=== PATIENT | male | born 1990 | race Caucasian/White ===

== ENCOUNTER 2018-11-01 12:55 | Emergency (ER) | payer MEDICAID ==
[~2018-11-01] VITALS: Ht 170.2 cm; Wt 59.0 kg
[2018-11-01] MEDS ORDERED: ondansetron/PF 4mg/2ml inj IV ONE (15:05)
[2018-11-01] MEDS ORDERED: normal saline 1000ML IV soln IVB ONE ×3 (15:05→16:10)
[2018-11-01] MEDS ORDERED: LORazepam 2 mg/ml vial IV ONE (15:05)
[2018-11-01] MEDS ORDERED: haloperidol lactate 5mg/ml inj IM ONE (15:10)
[2018-11-01] MEDS ORDERED: diphenhydrAMINE 50 mg/ml inj IV ONE (15:10)
[2018-11-01] MEDS ORDERED: cloNIDine 0.1 mg tablet PO ONE (15:10)
[2018-11-01] MEDS ORDERED: cloNIDine 0.1 MG/24 HOUR patch (7 day patch) TD ONE (15:10)
[2018-11-01] MEDS ORDERED: CLON-529 PO (15:27)
[2018-11-01] MEDS ORDERED: PHE12.5T PO (15:27)
[2018-11-01 15:34] LABS: ALANINE AMINOTRANSFERASE 116 U/L (12-78); ALBUMIN 3.8 G/DL (3.4-5.0); ALBUMIN/GLOBULIN RATIO 1.2 (1.1-1.5); ALKALINE PHOSPHATASE 81 IU/L (46-116); ANION GAP 16 (8-16); ASPARTATE AMINO TRANSFERASE 47 U/L (10-37); BILIRUBIN,TOTAL 0.7 MG/DL (0.1-1.0); BLOOD UREA NITROGEN 15 MG/DL (7-18); BUN/CREATININE RATIO 18.3 (5.4-32.0); CALCIUM 9.6 MG/DL (8.5-10.1); CHLORIDE 100 MMOL/L (99-107); CREATININE 0.82 MG/DL (0.60-1.10); GLUCOSE 124 MG/DL (70-104); MAGNESIUM 1.7 MG/DL (1.5-2.4); POTASSIUM 3.3 MMOL/L (3.5-5.1); SODIUM 137 MMOL/L (135-145); TOTAL CARBON DIOXIDE 21.3 MMOL/L (24-32); eGFR > 90 ML/MIN
[2018-11-01] MEDS ORDERED: potassium Cl 20 mEq SR tablet PO ONE (15:55)
[2018-11-01] MEDS ORDERED: magnesium oxide 400mg tablet PO ONE (15:55)
--- NOTE | 2018-11-01 17:24 | NUR ---
Dr. Horner at bedside.
[2018-11-01 17:34] VITALS: BP 145/77
== END 2018-11-01 17:38 | disposition home or self-care (01) ==
LOC: ER 12:55
DX: F11.23 Opioid dependence with withdrawal (principal); R11.10 Vomiting, unspecified; R19.7 Diarrhea, unspecified; F17.200 Nicotine dependence, unspecified, uncomplicated; F12.90 Cannabis use, unspecified, uncomplicated; F15.90 Other stimulant use, unspecified, uncomplicated; Z79.899 Other long term (current) drug therapy
CPT/HCPCS: 36415; 80053; 83735; 93005; 96361; 96372; 96374; 96375; 99284; J1200; J1630; J2060; J2405; J7030

== ENCOUNTER 2019-02-09 14:21 | Emergency (ER) | payer MEDICAID ==
[~2019-02-09] VITALS: Ht 170.2 cm; Wt 50.0 kg
[~2019-02-09 14:21] MED LIST: CLON-529 PO; PROM12.512 PO
[2019-02-09] MEDS ORDERED: buprenorphine/naloxone 8mg/2mg SL tablet SL SCH (14:40)
[2019-02-09 14:51] LABS: BASOPHILS % (AUTO) 0.4 % (0-1); EOSINOPHILS % (AUTO) 0.4 % (0-6); HEMATOCRIT 42.8 % (42.0-52.0); HEMOGLOBIN 14.5 g/dl (14.0-17.9); LYMPHOCYTES # (AUTO) 2.6 X10'3 (1.1-4.8); LYMPHOCYTES % (AUTO) 25.1 % (21-51); MEAN CORPUSCULAR HEMOGLOBIN 28.9 PG (27.0-31.0); MEAN CORPUSCULAR HGB CONC 33.8 g/dL (33.0-36.5); MEAN CORPUSCULAR VOLUME 85.4 FL (78-98); MEAN PLATELET VOLUME 6.7 FL (7.4-10.4); MONOCYTES # (AUTO) 0.8 X10'3 (0-0.9); MONOCYTES % (AUTO) 7.5 % (2-12); NEUTROPHILS # (AUTO) 6.9 X10'3 (1.8-7.7); NEUTROPHILS % (AUTO) 66.6 % (42-75); PLATELET COUNT 350 X10'3 (140-440); RED BLOOD COUNT 5.01 X10'6 (4.70-6.10); RED CELL DISTRIBUTION WIDTH 13.7 % (11.5-14.5); WHITE BLOOD COUNT 10.4 X10'3 (4.5-11.0)
[2019-02-09 14:58] LABS: CLARITY,URINE CLOUDY (Clear); COLOR,URINE YELLOW (Yellow); GLUCOSE, URINE NEGATIVE (Neg); KETONES,URINE TRACE mg/dl (Neg); LEUKOCYTE ESTERASE ,URINE NEGATIVE (Neg); NITRITES, URINE NEGATIVE (Neg); OCCULT BLOOD,URINE NEGATIVE (Neg); PROTEIN,URINE 30 mg/dl (Neg)
[2019-02-09 15:03] LABS: ALANINE AMINOTRANSFERASE 58 U/L (12-78); ALBUMIN 3.4 G/DL (3.4-5.0); ALBUMIN/GLOBULIN RATIO 0.9 (1.1-1.5); ALKALINE PHOSPHATASE 66 IU/L (46-116); ANION GAP 7 (8-16); ASPARTATE AMINO TRANSFERASE 30 U/L (10-37); BILIRUBIN,TOTAL 0.4 MG/DL (0.1-1.0); BLOOD UREA NITROGEN 12 MG/DL (7-18); BUN/CREATININE RATIO 13.3 (5.4-32.0); CALCIUM 8.8 MG/DL (8.5-10.1); CHLORIDE 102 MMOL/L (99-107); GLUCOSE 134 MG/DL (70-104); POTASSIUM 4.8 MMOL/L (3.5-5.1); SODIUM 139 MMOL/L (135-145); TOTAL CARBON DIOXIDE 30.2 MMOL/L (24-32); TOTAL PROTEIN 7.1 G/DL (6.4-8.2); eGFR > 90 ML/MIN
[2019-02-09 15:03] LABS: UA COLLECTION TYPE CLN CATCH MIDSTREAM
[2019-02-09 15:05] LABS: BACTERIA,URINE NONE SEEN /HPF (Neg); MUCUS STRANDS NONE SEEN /LPF (Neg); RBC,URINE NONE SEEN /HPF (0-2); SQUAMOUS EPITHELIAL CELL,UR FEW /LPF (FEW); WBC,URINE 0-4 /HPF (0-4)
[2019-02-09 15:06] LABS: AMORPHOUS URATES 2+; SPERM FEW /HPF (NEGATIVE)
[2019-02-09 15:12] LABS: ETHANOL < 0.010 GM/DL (0.0-0.010)
[2019-02-09 15:17] LABS: URINE AMPHETAMINE SCREEN NEGATIVE (Neg); URINE BARBITUATE SCREEN NEGATIVE (Neg); URINE BENZODIAZEPINES SCREEN NEGATIVE (Neg); URINE CANNABINOID SCREEN POSITIVE (Neg); URINE COCAINE SCREEN NEGATIVE (Neg); URINE METHADONE SCREEN NEGATIVE (Neg); URINE OPIATE SCREEN POSITIVE (Neg); URINE PHENCYCLIDINE SCREEN NEGATIVE (Neg)
--- NOTE | 2019-02-09 15:30 | NUR ---
Patient transferred from Room 15 in the Main ER to Bed 23 in the Overflow area. Ambulatory accompanied by mother,daughter and staff Howard. Changed into green gowns. Urine obtained. Made comfortable in bed.
--- NOTE | 2019-02-09 16:08 | NUR ---
PHONE NUMBERS FOR GLADYS ANDRES (PT'S MOTHER): [phone] OR [phone]
--- NOTE | 2019-02-09 16:43 | NUR ---
Patient is here wanting to harm self. Over the past two months he was a witness to his best friend that overdosed twice. Patient administered narcan both times with the last time being a witness to his friend passing away. Patient is an heroin addict and due to the trauma of losing his best friend has been using more frequently to numb the pain of losing his friend. Patient has two daughters and wants to get help detoxing of heroin and getting his life back on track.
[2019-02-09] MEDS: buprenorphine/naloxone 2-0.5mg sublingual tablet SL SCH (16:57)
--- NOTE | 2019-02-09 17:00 | NUR ---
Patient crying in loud sobs after talking with staff and expressing his feelings of remorse over past life behaviors and choices. Wishes to get his life together and be involved in the care of his daughters. Presents as danger to self at this time.
--- NOTE | 2019-02-09 18:00 | NUR ---
Sleeping soundly at this time. Color and breathing WNL. In line of sight of staff at all times.
--- NOTE | 2019-02-09 20:39 | NUR ---
pt has no needs at this time. resting in bed. informed him of his suboxone being due at 0000.
--- NOTE | 2019-02-09 23:24 | NUR ---
pt sleeping on lt side. resp even/unlabored
[2019-02-10] MEDS: buprenorphine/naloxone 2-0.5mg sublingual tablet SL SCH ×2 (00:17→08:45)
--- NOTE | 2019-02-10 00:20 | NUR ---
pt up to restroom. administered 0000 med per order
--- NOTE | 2019-02-10 02:25 | NUR ---
pt sleeping on back. resp even/unlabored
--- NOTE | 2019-02-10 05:24 | NUR ---
pt continues sleeping
--- NOTE | 2019-02-10 06:00 | NUR ---
Pt is sleeping
[2019-02-10 06:07] VITALS: BP 121/69
--- NOTE | 2019-02-10 07:30 | NUR ---
Pt is sleeping.
--- NOTE | 2019-02-10 08:18 | NUR ---
Sister Anjum Harris [phone]
--- NOTE | 2019-02-10 09:03 | NUR ---
pt took medications.
--- NOTE | 2019-02-10 10:51 | NUR ---
pt is sleeping.
--- NOTE | 2019-02-10 12:51 | NUR ---
pt is continuing to sleep.
--- NOTE | 2019-02-10 13:50 | NUR ---
Pt resting in bed in no current distress.
[2019-02-10] MEDS ORDERED: BUPR1FIL3 SL (17:27)
== END 2019-02-10 14:52 ==
LOC: ER 14:21
DX: F32.9 Major depressive disorder, single episode, unspecified (principal); F11.23 Opioid dependence with withdrawal; F15.10 Other stimulant abuse, uncomplicated; F10.99 Alcohol use, unspecified with unspecified alcohol-induced disorder; F12.90 Cannabis use, unspecified, uncomplicated; Z79.899 Other long term (current) drug therapy; Y90.0 Blood alcohol level of less than 20 mg/100 ml
CPT/HCPCS: 36415; 80053; 80305; 80320; 81001; 84443; 85025; 99285

== ENCOUNTER 2019-02-10 13:21 | Inpatient (IN) | payer MEDICAID ==
[~2019-02-10] VITALS: Ht 170.2 cm; Wt 55.6 kg
[2019-02-10] MEDS ORDERED: hydrOXYzine 25 MG tablet PO PRN (15:40)
[2019-02-10] MEDS ORDERED: magnesium hydroxide 30ml (MOM) UD suspension PO PRN (15:40)
[2019-02-10] MEDS ORDERED: loperamide 2mg capsule PO PRN (15:40)
[2019-02-10] MEDS ORDERED: mag hydrox/Alum hydrox/simeth 30ml oral suspension PO PRN (15:40)
[2019-02-10] MEDS ORDERED: acetaminophen 325mg tablet PO PRN ×2 (15:40)
[2019-02-10] MEDS ORDERED: tuberculin, purif. prot. deriv. 5 units/0.1ml ID ONE (15:40)
[2019-02-10] MEDS ORDERED: BUPR1FIL3 SL (17:27)
[2019-02-10] MEDS ORDERED: NICOTINE POLACRILEX 2 MG LOZENGE MM PRN (17:30)
[2019-02-10 18:04] VITALS: BP 109/68
--- NOTE | 2019-02-10 18:09 | NUR ---
Nurse Admission Note: Pt is a 29 yo male brought to [facility] from [facility] ER after being put on a 5150 hold for danger to self. Pt SA was interrupted by his mother when he was on a bridge and thinking about jumping. Pt is feeling effects of heroine withdrawal, depressed, and dealing with the traumatic experience of having his friend in his arms due to an OD. Pt motivated to stop using heroine and open to taking an antidepressant. Pt showered, MRSA swab completed. Admission questions completed and oriented to unit and is now resting in bed. Consulted with Dr Diaz r/t meds. Addendum: 02/10/19 at 1819 by Sheldon Loco RN Vital Signs @1800: P - 78, T - 97.7, BP - 109/68, R - 16, O2 - 100%. Pain in stomach as he is nauseous r/t rodger CHAMPION.
[2019-02-10 20:00] VITALS: BP 110/54
[2019-02-10] MEDS: buprenorphine/naloxone 8MG-2MG SUBlingual film SL SCH (20:58)
--- NOTE | 2019-02-10 21:27 | NUR ---
Nursing Progress Note: Legal hold:5150 Client on voluntary/involuntary status for DTS Report received from nurse Kathy BAHENA with use of SBAR[]. Why are they here: Nurse Admission Note: Pt is a 29 yo male brought to [facility] from [facility] ER after being put on a 5150 hold for danger to self. Pt SA was interrupted by his mother when he was on a bridge and thinking about jumping. Pt is feeling effects of heroine withdrawal, depressed, and dealing with the traumatic experience of having his friend in his arms due to an OD. Pt motivated to stop using heroine and open to taking an antidepressant. Pt showered, MRSA swab completed. Admission questions completed and oriented to unit and is now resting in bed. Consulted with Dr Diaz r/t meds. Assessment What has happened this shift: Patient in bed at the start of shift. 1:1 at bed side Pt. states that he is depressed and has SI due to the stressors of losing a friend in his arm from an overdose. Pt states I'm here for help. I want to stop using. Pt was med compliant this shift. S/I, H/I: Y A/VH: []N Sleep:[]good ADL's:[]IND Group attendance:[] Were meds taken:[]Y Any med S/E[] Mental Status Exam Appearance:[] Depressed Eye contact:[] good Behavior:[] Speech:[]clear Mood:[]downcast Affect:[]Flat Thought process:[] Thought Content:[]blunted Cognition:[] Insight:[]poor Judgment:[] poor Interventions PRN's used:[] Therapeutic interventions:[] Restraints/seclusion/emergency medication:[] Justification of Continued Inpatient Treatment:[]
[2019-02-11] MEDS: buprenorphine/naloxone 8MG-2MG SUBlingual film SL SCH ×2 (07:15→20:38)
[2019-02-11 07:59] LABS: CHOL/HDL RATIO 3.3 (0.00-4.99); CHOLESTEROL 92 MG/DL (0-200); HDL CHOLESTEROL 28 MG/DL (35-60); LDL CHOLESTEROL 62 MG/DL (50-100); TRIGLYCERIDES 44 MG/DL (20-135)
[2019-02-11 08:00] VITALS: BP 106/68
[2019-02-11 08:58] LABS: HEMOGLOBIN A1C 5.7 % (4.5-6.2)
--- NOTE | 2019-02-11 15:09 | NUR ---
Malnutrition consult, patient presents with no edema, eating well with great appetite, 75-100% PO intake regular diet. There is a 2 lb difference in weight in the past four months, not significant for mild, moderate, or severe weight loss. BMI is appropriate, although 86% of IBW. Does not currently meet criteria for malnutrition. Will continue to follow per protocol. Addendum: 02/11/19 at [address] Amended: Links added.
--- NOTE | 2019-02-11 15:43 | NUR ---
Nursing Progress Note: Jaime Legal hold:5150 Client on voluntary/involuntary status for DTS Report received from slot shift supervisor RN Why are they here: Nurse Admission Note: Pt is a 29 yo male brought to [facility] from [facility] ER after being put on a 5150 hold for danger to self. Pt SA was interrupted by his mother when he was on a bridge and thinking about jumping. Pt is feeling effects of heroine withdrawal, depressed, and dealing with the traumatic experience of having his friend in his arms due to an OD. Pt motivated to stop using heroine and open to taking an antidepressant. Pt showered, MRSA swab completed. Admission questions completed and oriented to unit and is now resting in bed. Consulted with Dr Diaz r/t meds. Assessment What has happened this shift: Patient in bed at the start of shift. Compliant with assessment and medications. Client appears withdrawn and has been in his bed since the beginning of shift. Woke briefly to conduct am assessment and take medications. Patient did come to group room for lunch and has been more visible on the unit this pm. Had a phone visit this afternoon which seemed to brighten his affect. This investigative writer spoke to client regarding phone call today. He stated that he was talking to his Mother and was checking to see if he could discharge to her home when stable. He remains hopeful that she will accept him to her home. Client was previosly home;ess. S/I, H/I: Y A/VH: Denies Sleep: rested at times during shift ADL's: ind. Group attendance: no Were meds taken: Yes Any med S/E no Mental Status Exam Appearance: Depressed but brighter Eye contact: good Behavior: appropriate for unit. Speech:clear Mood:downcast Affect:Flat Thought process: Thought Content: blunted Cognition: Insight: improving Judgment: fair Interventions PRN's used: Therapeutic interventions: Restraints/seclusion/emergency medication: Justification of Continued Inpatient Treatment:
[2019-02-11 20:00] VITALS: BP 116/57
--- NOTE | 2019-02-11 22:41 | NUR ---
Nursing Progress Note: Jaime Legal hold:5150 Client on voluntary/involuntary status for DTS Report received from Joon BAHENA Why are they here: Nurse Admission Note: Pt is a 29 yo male brought to [facility] from [facility] ER after being put on a 5150 hold for danger to self. Pt SA was interrupted by his mother when he was on a bridge and thinking about jumping. Pt is feeling effects of heroine withdrawal, depressed, and dealing with the traumatic experience of having his friend in his arms due to an OD. Pt motivated to stop using heroine and open to taking an antidepressant. Pt showered, MRSA swab completed. Admission questions completed and oriented to unit and is now resting in bed. Consulted with Dr Diaz r/t meds. Assessment What has happened this shift: Patient in bed at the start of shift. Compliant with assessment and medications. Client appears withdrawn and has been in his bed since the beginning of shift. Woke briefly to conduct am assessment and take medications. Patient did go to group room for lunch and has been more visible on the unit this pm. Had a phone visit this afternoon which seemed to brighten his affect. This credit underwriter spoke to client regarding phone call today. He stated that he was talking to his Mother and was checking to see if he could discharge to her home when stable. He remains hopeful that she will accept him to her home. Client was previosly home;ess. S/I, H/I: Y A/VH: Denies Sleep: rested at times during shift ADL's: ind. Group attendance: no Were meds taken: Yes Any med S/E no Mental Status Exam Appearance: Depressed but brighter Eye contact: good Behavior: appropriate for unit. Speech:clear Mood:downcast Affect:Flat Thought process: Thought Content: blunted Cognition: Insight: improving Judgment: fair Interventions PRN's used: Therapeutic interventions: Restraints/seclusion/emergency medication: Justification of Continued Inpatient Treatment:
[2019-02-12 08:00] VITALS: BP 118/64
[2019-02-12] MEDS: buPROPion 75mg tablet PO SCH (08:28)
[2019-02-12] MEDS: buprenorphine/naloxone 8MG-2MG SUBlingual film SL SCH ×2 (08:28→20:42)
--- NOTE | 2019-02-12 14:35 | NUR ---
Nursing Progress Note: Jaime Legal hold:5150 Client on involuntary status for DTS Report received from SHRUTI Morgan with use of SBAR Why are they here: Pt is a 29 yo male brought to [facility] from [facility] ER after being put on a 5150 hold for danger to self. Pt SA was interrupted by his mother when he was on a bridge and thinking about jumping. Pt is feeling effects of heroine withdrawal, depressed, and dealing with the traumatic experience of having his friend in his arms due to an OD. Pt motivated to stop using heroin and agreeable to an antidepressant. Assessment What has happened this shift: Pt rated his depression today at a 6/10. denied SI. Pt is quiet and isolative to self. He returned to bed after breakfast and lunch, does not socialize with staff or peers. S/I, H/I: Y A/VH: Denies Sleep: rested at times during shift ADL's: ind. Group attendance: no Were meds taken: Yes Any med S/E no Mental Status Exam Appearance: Depressed but brighter Eye contact: good Behavior: appropriate for unit. Speech:clear Mood:downcast Affect:Flat Thought process: Thought Content: blunted Cognition: Insight: improving Judgment: fair Interventions PRN's used: Therapeutic interventions: Restraints/seclusion/emergency medication: Justification of Continued Inpatient Treatment: Addendum: 02/12/19 at 1447 by Lilibeth Odonnell RN (Lee) INCOMPLETE NURSING NOTE; ACCIDENTLY HIT A BUTTON WHICH SAVED NOTE PREMATURELY. PLEASE SEE NEXT NURSING NOTE.
--- NOTE | 2019-02-12 14:48 | NUR ---
CORRECT NURSING PROGRESS NOTE FOR 02/12/19 AM SHIFT: Legal hold:5150 Client on involuntary status for DTS Report received from SHRUTI Morgan with use of SBAR Why are they here: Pt is a 29 yo male brought to [facility] from [facility] ER after being put on a 5150 hold for danger to self. Pt SA was interrupted by his mother when he was on a bridge and thinking about jumping. Pt is feeling effects of heroine withdrawal, depressed, and dealing with the traumatic experience of having his friend in his arms due to an OD. Pt motivated to stop using heroin and agreeable to an antidepressant. Assessment What has happened this shift: Pt rated his depression today at a 6/10. denied SI. Pt is quiet and isolative to self. He returned to bed after breakfast and lunch, does not socialize with staff or peers. Declined to attend groups, cooperative with medications; continues on Suboxone film. S/I, H/I: Pt denies A/VH: Pt denies Sleep: Naps after meals and throughout much of day shift ADL's: independent Group attendance: No, pt declined Were meds taken: Yes Any med S/E: None noted or reported Mental Status Exam Appearance: neat, clean Eye contact: Good Behavior: isolative to self and room Speech: Clear, audible, minimal Mood: Depressed Affect: Blunted Thought process: linear Thought Content: Pt is not choosing to express his thoughts at this time. Cognition: A/O X 4 Insight: Fair Judgment: Fair Interventions PRN's used: None Therapeutic interventions: 1:1 assessment, establishment of rapport, encouragement to express thoughts and feelings, encouragement to attend groups, medication administration/monitoring/education, Q 15 min checks. Restraints/seclusion/emergency medication: None Justification of Continued Inpatient Treatment: Pt is depressed with intermittent SI, he needs crisis interruption with medication adjustment and monitoring in a safe and therapeutic environment as well as resources to pursue sobriety once discharged to prevent decompensation and readmission.
[2019-02-12 19:39] VITALS: BP 102/60
--- NOTE | 2019-02-13 02:41 | NUR ---
NURSING PROGRESS NOTE: Legal hold:5150 Client on involuntary status for DTS Report received from SHRUTI De Paz with use of SBAR Why are they here: Pt is a 29 yo male brought to [facility] from [facility] ER after being put on a 5150 hold for danger to self. Pt SA was interrupted by his mother when he was on a bridge and thinking about jumping. Pt is feeling effects of heroine withdrawal, depressed, and dealing with the traumatic experience of having his friend in his arms due to an OD. Pt motivated to stop using heroin and agreeable to an antidepressant. Assessment What has happened this shift: Patient is in his room at the change of shift reading a book. He is cooperative for a 1:1 assessment. He reports still being depressed but states that being able to talk to the Dr and geriatric social work professor to help process his feelings has been helpful. He states multiple time during the conversation "I'm done." referring to quitting drugs and being sober. He states "It was fun and games at first, then it became a habit, then this (referring to his friend overdosing).", he states "I don't know how I got here." He goes on to talk about how he wants to get sober not only for himself, but for his daughter and the people that need him. He say's he hasn't attended groups yet, but he feels he may not be emotionally ready to talk about things in a group setting yet. He is compliant with his evening medications and goes to bed shortly after HS meds. S/I, H/I: Denies A/VH: Denies Sleep: See sleep assessment ADL's: Independent Group attendance: No groups this shift Were meds taken: Yes Any med S/E: None noted or reported Mental Status Exam Appearance: Neat, clean. Showered this evening Eye contact: Good Behavior: Isolative to room, but when on unit interacts and is friendly with staff and peers Speech: Clear, normal, volume and rate Mood: Depressed Affect: Congruent to mood Thought process: Linear Thought Content: Talked about what brought him to the decision of getting sober Cognition: A/O X 4 Insight: Fair Judgment: Fair Interventions PRN's used: None Therapeutic interventions: 1:1 assessment, establishment of rapport, encouragement to express thoughts and feelings, encouragement to attend groups, medication administration/monitoring/education, Q 15 min checks. Restraints/seclusion/emergency medication: None Justification of Continued Inpatient Treatment: Pt is depressed with intermittent SI, he needs crisis interruption with medication adjustment and monitoring in a safe and therapeutic environment as well as resources to pursue sobriety once discharged to prevent decompensation and readmission.
[2019-02-13] MEDS: buPROPion 75mg tablet PO SCH (07:18)
[2019-02-13] MEDS: buprenorphine/naloxone 8MG-2MG SUBlingual film SL SCH ×2 (07:19→21:32)
[2019-02-13 08:00] VITALS: BP 102/68
[2019-02-13] MEDS ORDERED: buPROPion 75mg tablet PO ONE (16:00)
--- NOTE | 2019-02-13 16:16 | NUR ---
Read PPD, negative. Dr Jane ordered a one time dose of Wellbutrin 75 mg now, and increased Wellbutrin to 75 mg BIDBL.
--- NOTE | 2019-02-13 17:38 | NUR ---
Nursing Progress Note: Legal hold:5250 Client on involuntary status for DTS Report received from Amee JOLLEY with use of SBAR Why are they here: Pt is a 29 yo male brought to [facility] from [facility] ER after being put on a 5150 hold for danger to self. Pt SA was interrupted by his mother when he was on a bridge and thinking about jumping. Pt is feeling effects of heroine withdrawal, depressed, and dealing with the traumatic experience of having his friend in his arms due to an OD. Pt motivated to stop using heroin and agreeable to an antidepressant. Assessment What has happened this shift: Pt stated his depression was a little better today, rated it at a 5/10, denied SI/HI/AH/VH. Pt stated that his anxiety was increased today and reported "weird dreams" though denied them being nightmares. Pt became a little tearful when incident of his friend OD'ing on heroin and dying in his arms was addressed and stated, "damn him." Pt denies withdrawal symptoms. He has chronic back pain which he states was from a high school wrestling injury. He spoke of how he was started on pain pills, [place], for the pain, "that's how it started." Pt indicated that he liked the feeling and progressed to illicit drugs like Heroin. Pt states that he is on probation but is almost done with it. The therapist that called and left a message for him the other day was probation affiliated. Dr Jane placed pt on a 5250 today, served pt the advisement and notified him of hearing on Saturday. Pt is agreeable to staying until he is accepted at a rehab, pt states he has an interview next week. Plan is for probation to pay for him to go to [facility]. S/I, H/I: Pt denies A/VH: Pt denies Sleep: Slept 7 hours per noc shift report ADL's: independent Group attendance: Yes Were meds taken: Yes Any med S/E: None noted or reported Mental Status Exam Appearance: neat, clean Eye contact: Good Behavior: pleasant, cooperative Speech: Clear, audible, minimal Mood: Anxious, depressed Affect: Anxious Thought process: linear Thought Content: Pt feels the Wellbutrin is working, he is focused on getting into a rehab facility. Cognition: A/O X 4 Insight: Fair Judgment: Fair Interventions PRN's used: None Therapeutic interventions: 1:1 assessment, therapeutic conversation, encouragement to attend groups, medication administration/monitoring/education, mental health legal hold education, Q 15 min safety checks. Restraints/seclusion/emergency medication: None Justification of Continued Inpatient Treatment: Pt is depressed and anxious, he wishes to stay clean and sober, he needs crisis interruption with medication adjustment and monitoring in a safe and therapeutic environment as well as resources to pursue sobriety once discharged to prevent decompensation and readmission.
[2019-02-13 20:04] VITALS: BP 113/58
[2019-02-13] MEDS: traZODone 50mg tablet PO PRN (21:53)
--- NOTE | 2019-02-14 02:29 | NUR ---
NURSING PROGRESS NOTE: Legal hold:5250 Client on involuntary status for DTS Report received from SHRUTI Gomez with use of SBAR Why are they here: Pt is a 29 yo male brought to [facility] from [facility] ER after being put on a 5150 hold for danger to self. Pt SA was interrupted by his mother when he was on a bridge and thinking about jumping. Pt is feeling effects of heroine withdrawal, depressed, and dealing with the traumatic experience of having his friend in his arms due to an OD. Pt motivated to stop using heroin and agreeable to an antidepressant. Assessment What has happened this shift: Patient is in his room at the change of shift reading a book. He shortly after is noted to be in the recreation room having a meeting with TEOFILO Rider. He spends a portion of his evening meeting with Adry. After he is done patient agrees to a 1:1 assessment at his bedside. He expresses feelings of positivity over being able to go to a treatment program once discharged from here. He talks about taking his life back. He is compliant with HS medications and requests something for sleep this evening. Trazodone order is obtained from Dr. Jane and administered as ordered. S/I, H/I: Denies A/VH: Denies Sleep: See sleep assessment ADL's: Independent Group attendance: No groups this shift Were meds taken: Yes Any med S/E: None noted or reported Mental Status Exam Appearance: Neat, clean. Showered this evening Eye contact: Good Behavior: Isolative to room, but when on unit interacts and is friendly with staff and peers Speech: Clear, normal, volume and rate Mood: Depressed Affect: Congruent to mood Thought process: Linear Thought Content: Going to a sober living program Cognition: A/O X 4 Insight: Fair Judgment: Fair Interventions PRN's used: Trazodone 50 mg Therapeutic interventions: 1:1 assessment, establishment of rapport, encouragement to express thoughts and feelings, encouragement to attend groups, medication administration/monitoring/education, Q 15 min checks. Restraints/seclusion/emergency medication: None Justification of Continued Inpatient Treatment: Pt is depressed with intermittent SI, he needs crisis interruption with medication adjustment and monitoring in a safe and therapeutic environment as well as resources to pursue sobriety once discharged to prevent decompensation and readmission.
[2019-02-14 07:00] VITALS: BP 97/51
[2019-02-14] MEDS: buprenorphine/naloxone 8MG-2MG SUBlingual film SL SCH ×2 (08:28→20:38)
[2019-02-14] MEDS: buPROPion 75mg tablet PO SCH ×2 (08:28→13:02)
--- NOTE | 2019-02-14 09:59 | NUR ---
DISCHARGE PLANNING: New pt appts are schedules for pt at [facility] and pt completed new pt pdt and I fax it back to [facility], original is in pt chart. Pt is on probation. His P.O. is Sampson Alvares (he is out of the office until the ).I confirmed w/ the officer of the day, -Donna Guerra, they have approved 30 days at [facility], when D/C date is known, you will need to call and ask for the officer of the day-[place] @ [phone], and they will complete voucher and fax to [facility] ([facility]). Pt believes [facility] will need to interview him before final acceptance and was given a contact number Jaime @ [phone]. Another contact that I have worked with is Lázaro @ [phone]. I phoned and left a message w/ Lázaro asking the process in this case and left KAMLA Rowland's contact info. Also, [facility] may want to transport at D/C. Medication: [facility] Bedside Delivery AMBROSIO Estrada Addendum: 02/14/19 at 1022 by Adry Carrillo SS Left Message with [facility] @ [phone] to reach out to Ms. Alexander to clarify her role, possible pt's adult protective caseworker. and left KAMLA Rowland's contact info. AMBROSIO Estrada
--- NOTE | 2019-02-14 14:33 | NUR ---
Initial: Pt admit with depression. Currently on regular diet with documented 75-100% PO intake meeting nutrient needs. LBM 02/13. No edema or wounds. No nutrition diagnosis at this time. Will continue to follow. Recommendations: 1) Continue with regular diet 2) Bowel care PRN 3) Weekly wt Addendum: 02/14/19 at [address] Amended: Links added.
--- NOTE | 2019-02-14 17:50 | NUR ---
Nursing Progress Note: Legal hold:5250 Client on involuntary status for DTS Report received from Amee JOLLEY. Why are they here: Pt is a 29 yo male brought to [facility] from [facility] ER after being put on a 5150 hold for danger to self. Pt SA was interrupted by his mother when he was on a bridge and thinking about jumping. Pt is feeling effects of heroine withdrawal, depressed, and dealing with the traumatic experience of having his friend in his arms due to an OD. Pt motivated to stop using heroin and agreeable to an antidepressant. Assessment What has happened this shift: Pt. has slept much of the day. He is approved for 30 day stay by probation at [facility]. He appears to be settling into unit milieu. States his depression is about a 3. Reports that he believes he can kick his drug habit, has done it before. 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 S/I, H/I: Pt denies A/VH: Pt denies Sleep: Slept 7.25 hours per noc shift report ADL's: independent. Showered. Group attendance: Yes Were meds taken: Yes Any med S/E: None noted or reported Mental Status Exam Appearance: neat, clean Eye contact: Good Behavior: pleasant, cooperative Speech: Clear, audible, minimal Mood: Anxious, depressed Affect: Anxious Thought process: linear Thought Content: Pt feels the Wellbutrin is working, he is focused on getting into a rehab facility. Cognition: A/O X 4 Insight: Fair Judgment: Fair Interventions PRN's used: None Therapeutic interventions: 1:1 assessment, therapeutic conversation, encouragement to attend groups, medication administration/monitoring/education, mental health legal hold education, Q 15 min safety checks. Restraints/seclusion/emergency medication: None Justification of Continued Inpatient Treatment: Pt is depressed and anxious, he wishes to stay clean and sober, he needs crisis interruption with medication adjustment and monitoring in a safe and therapeutic environment as well as resources to pursue sobriety once discharged to prevent decompensation and readmission.
[2019-02-14 19:58] VITALS: BP 103/60
[2019-02-14] MEDS: traZODone 50mg tablet PO PRN (20:38)
[2019-02-14] MEDS: LORazepam 1 MG tablet PO PRN (21:52)
[2019-02-15 07:00] VITALS: BP 94/46
[2019-02-15] MEDS: buPROPion 75mg tablet PO SCH ×2 (08:34→12:30)
[2019-02-15] MEDS: buprenorphine/naloxone 8MG-2MG SUBlingual film SL SCH ×2 (08:35→20:19)
[2019-02-15] MEDS: ondansetron 4mg rapidly disintigrating tab PO PRN (12:46)
--- NOTE | 2019-02-15 18:04 | NUR ---
Nursing Progress Note: Legal hold:5250 Client on involuntary status for DTS Report received from Amee JOLLEY. Why are they here: Pt is a 29 yo male brought to [facility] from [facility] after being put on a 5150 hold for danger to self. Pt SA was interrupted by his mother when he was on a bridge and thinking about jumping. Pt is feeling effects of heroine withdrawal, depressed, and dealing with the traumatic experience of having his friend in his arms due to an OD. Pt motivated to stop using heroin and agreeable to an antidepressant. Assessment: What has happened this shift: Jaime awoke stating he had an upset stomach and just before lunch patient had large emesis (approximately 400 ml). Zofran given with good relief of symptoms. Patient has been in bed all day sleeping except for getting up for breakfast. Denies SI. Still focused on sober living at [facility]. S/I, H/I: Pt denies A/VH: Pt denies Sleep: Patient states he slept well at [facility]. Slept most of the day. ADL's: independent. Group attendance: No. Were meds taken: Yes Any med S/E: None noted or reported Mental Status Exam Appearance: neat and clean wearing casual clothing. Eye contact: Good Behavior: pleasant, cooperative Speech: Clear, audible, minimal Mood: depressed Affect: Blunted. Thought process: linear Thought Content: Pt. focusing on discharge to [facility]. Patient is not feeling well. Cognition: A/O X 4 Insight: Fair Judgment: Fair Interventions PRN's used: Zofran Therapeutic interventions: 1:1 assessment, therapeutic conversation, encouragement to attend groups, medication administration/monitoring/education, mental health legal hold education, Q 15 min safety checks. Restraints/seclusion/emergency medication: None Justification of Continued Inpatient Treatment: Pt is depressed and anxious, he wishes to stay clean and sober, he needs crisis interruption with medication adjustment and monitoring in a safe and therapeutic environment as well as resources to pursue sobriety once discharged to prevent decompensation and readmission.
[2019-02-15] MEDS: LORazepam 1 MG tablet PO PRN (19:05)
[2019-02-15 19:39] VITALS: BP 102/69
[2019-02-15] MEDS: traZODone 50mg tablet PO PRN (20:47)
--- NOTE | 2019-02-16 02:24 | NUR ---
Nursing Progress Note: Legal hold: 5250 Client on involuntary status for DTS Report received from Ciarra JOLLEY. Why are they here: Pt is a 29 yo male brought to [facility] from [facility] ER after being put on a 5150 hold for danger to self. Pt SA was interrupted by his mother when he was on a bridge and thinking about jumping. Pt is feeling effects of heroine withdrawal, depressed, and dealing with the traumatic experience of having his friend in his arms due to an OD. Pt motivated to stop using heroin and agreeable to an antidepressant. Assessment: What has happened this shift: Pt was visible on the unit, socializing with peers. His brother came to visit venkat, which he said went very well. He was also able to call his 9 year old daughter and talk with her which he said made him very happy. Science Teacher spent 30 minutes listening and talking to pt about his addiction and his plan for recovery. "I just got into such a dark place after my friend that i didn't even want to live." "I had saved him from an overdose a few months before too." "I was always really careful, I would inject half and see how it felt then do the rest, If i tasted fentanyl I would stop and throw it out." He states that he realizes how "crazy" things got and how dangerous what hew as doing was. "I have so much to live for, my daughter's mom, my daughter." "My daughter loves me so much and she knows I am sick and she has written me letters saying she misses me and wishes I wouldn't do drugs. She doesn't deserve that." He says that he will go to a sober living home after this which he feels he needs because he wants accountability, and a sponsor. He also talked about being sad about all the friends he will have to let go of, but that they were probably just around for the drugs and not him. Pt is in good spirits and states he is "very happy to be here, I needed this so much." He also states he feels like he is ready to "feel again" and not just numb away his problems. S/I, H/I: Pt denies A/VH: Pt denies Sleep: see sleep assessment notation ADL's: independent. Group attendance: snack time attendance Were meds taken: Yes Any med S/E: None noted or reported Mental Status Exam Appearance: neat and clean wearing casual clothing. Eye contact: Good Behavior: pleasant, cooperative Speech: Clear Mood: upbeat Affect: bland with brightening Thought process: linear Thought Content: Pt. focusing on staying clean Cognition: A/O X 4 Insight: Fair Judgment: Fair Interventions PRN's used: ativan Therapeutic interventions: 1:1 assessment, therapeutic conversation, encouragement to attend groups, medication administration/monitoring/education, mental health legal hold education, Q 15 min safety checks. Restraints/seclusion/emergency medication: None Justification of Continued Inpatient Treatment: Pt is depressed and anxious, he wishes to stay clean and sober, he needs crisis interruption with medication adjustment and monitoring in a safe and therapeutic environment as well as resources to pursue sobriety once discharged to prevent decompensation and readmission.
[2019-02-16 07:44] VITALS: BP 118/64
[2019-02-16] MEDS: buprenorphine/naloxone 8MG-2MG SUBlingual film SL SCH ×2 (08:24→21:00)
[2019-02-16] MEDS: ondansetron 4mg rapidly disintigrating tab PO PRN ×2 (08:24→12:54)
[2019-02-16] MEDS: buPROPion 75mg tablet PO SCH ×2 (08:24→12:54)
--- NOTE | 2019-02-16 13:06 | NUR ---
DISCHARGE PLANNING: SW met w/ Jaime from [facility] at [phone], who came to [facility] to interview pt. SW informed Jaime of pt's flu sx and rescheduled for some time w/in the next 48 hours. Chantelle Rowland, Rod Buster SUPERVISOR REACTOR [employer]UELING [id number] Supervised by Ray Yen, [id number]
[2019-02-16] MEDS ORDERED: metoclopramide 5 mg/ml inj IM ONE (13:45)
--- NOTE | 2019-02-16 16:27 | NUR ---
Nursing Progress Note: Legal hold:5250 Client on involuntary status for DTS Report received from Kait BAHENA with use of SBAR Why are they here: Pt is a 29 yo male brought to [facility] from [facility] ER after being put on a 5150 hold for danger to self. Pt SA was interrupted by his mother when he was on a bridge and thinking about jumping. Pt is feeling effects of heroine withdrawal, depressed, and dealing with the traumatic experience of having his friend in his arms due to an OD. Pt motivated to stop using heroin and agreeable to an antidepressant. Assessment What has happened this shift: Spent the greater part oaf the day in bed due to flu symptoms. Positive for N/V/D. Temp = 99.1. Pulse is 72. Color is white with red blotches, secondary to vomiting. Dr. Martinez, hospitalist, consulted. Order given for Reglan 10 mg. IM now. Administered without event. Dr. Jane here to see patient. Ordered clear liquid diet. Patient denies suicidal ideation or intent. Presents with poor self-esteem/self-worth. Believes he is not strong enough to maintain his safety if left on his own. Is motivated to "get off drugs and be a father to my daughter." Chose not to atted his 5250 hearing today. Hearing upheld. S/I, H/I: Pt denies A/VH: Pt denies Sleep: Slept 7.25 hours per maintenance technician 3rd shift report and throughout today. ADL's: Independent/Showered today Group attendance: Yes Were meds taken: Yes Any med S/E: None noted or reported Mental Status Exam Appearance: neat, clean Eye contact: Good Behavior: pleasant, cooperative Speech: Clear, audible, minimal Mood: Anxious, depressed Affect: Anxious Thought process: linear Thought Content: Pt feels the Wellbutrin is working, he is focused on getting into a rehab facility. Cognition: A/O X 4 Insight: Fair Judgment: Fair Interventions PRN's used: None Therapeutic interventions: 1:1 assessment, therapeutic conversation, encouragement to attend groups, medication administration/monitoring/education, mental health legal hold education, Q 15 min safety checks. Restraints/seclusion/emergency medication: None Justification of Continued Inpatient Treatment: Pt is depressed and anxious, he wishes to stay clean and sober, he needs crisis interruption with medication adjustment and monitoring in a safe and therapeutic environment as well as resources to pursue sobriety once discharged to prevent decompensation and readmission.
[2019-02-16 20:22] VITALS: BP 122/68
[2019-02-17] MEDS: ondansetron 4mg rapidly disintigrating tab PO PRN (03:53)
--- NOTE | 2019-02-17 04:54 | NUR ---
Unusual Occurrence: Pt isolated in his room at the beginning of shift until two visitors came, a male and female. After the visit pt requested to take a shower, which he did. Pt was then seen by this insurance underwriter going into another patient's room accompanied by that other pt. Ticket Taker approached the room and saw Jaime looking down at the floor as if something was dropped and using his foot making a sweeping motion to try to push whatever was on the floor under a shelving unit. Ticket Taker walked into the room and asked what they were doing to which Jaime responded with a startled look," We were just talking." Then he proceeded to quickly walk out of the other patients room towards his room. Ticket Taker told both patients that they could not be in each other's rooms. Ticket Taker reported this behavior to charge nurse and headed back towards [facility]'s room. When insurance underwriter arrived that other pt was in Jaime's room and quickly left. This insurance underwriter confronted Jaime asking, "what were you looking at on the floor and moving with your feet in that pt's room?" Jaime responded, "Oh I was just looking down at all the cracker crumbs and was telling him to clean that shit up because I wouldn't keep my room a mess like that." Ticket Taker asked Jaime if he could understand why the situation appeared suspicious and he said," yes I can see why but we weren't doing anything." Ticket Taker consulted with charge nurse, and the Behavioral Health director was informed. Jaime was informed a room search was being done. Security was called and a room search was done. In Jaime's room security personnel found an opened can of chewing tobacco, a folding machine operator, 2 pen caps melted and shaped into a small pipe-like apparatus which was slightly melted at each end and still warm to the touch, and two pieces o chewing gum with foil wrappers. Jaime was asked to change into clean green scrubs to assure no more contraband was found. Jaime admitted that the chewing tobacco and gum was his but said "That other stuff isn't mine I don't even know who's that is someone probably hid it in my room." Ticket Taker asked pt if he had taken anything and that we just wanted to make sure he was safe. He replies, "no I didn't." Jaime was scheduled to receive Suboxone 8-2 mg HS, but this medication was held because insurance underwriter felt that it could medically compromise the patient if he had ingested any other substance. Ticket Taker told Jaime the reasons why the Suboxone was being held and he did not protest, he just said, "yea I understand."
--- NOTE | 2019-02-17 04:56 | NUR ---
Nursing Progress Note: Legal hold: 5250 Client on involuntary status for DTS Report received from Ciarra JOLLEY. Why are they here: Pt is a 29 yo male brought to [facility] after being put on a 5150 hold for danger to self. Pt SA was interrupted by his mother when he was on a bridge and thinking about jumping. Pt is feeling effects of heroine withdrawal, depressed, and dealing with the traumatic experience of having his friend in his arms due to an OD. Pt motivated to stop using heroin and agreeable to an antidepressant. Assessment: What has happened this shift: Pt was still experiencing some nausea and vomiting, which was present from the beginning of the shift. He also reports having diarrhea. "I have a stomach bug, I can feel it." Pt's 2100 vital signs were WNL. At 0400 pt was in the bathroom dry heaving and he requested Zofran which was given to him. Vital signs were taken and are as follows: HR: 76, BP: 115/73, T:98.8, RR: 16 02 :97%. Pt encouraged to drink water and stay hydrated. Pt verbalized understanding. S/I, H/I: Pt denies A/VH: Pt denies Sleep: see sleep assessment notation ADL's: independent. Group attendance: snack time attendance Were meds taken: Yes Any med S/E: None noted or reported Mental Status Exam Appearance: neat and clean wearing casual clothing. Eye contact: Good Behavior: suspicious, guarded Speech: Clear Mood: guarded Affect: bland Thought process: linear Thought Content: JOJO Cognition: A/O X 4 Insight: Fair Judgment: Fair Interventions PRN's used: NA Therapeutic interventions: 1:1 assessment, therapeutic conversation, encouragement to attend groups, medication administration/monitoring/education, mental health legal hold education, Q 15 min safety checks. Restraints/seclusion/emergency medication: None Justification of Continued Inpatient Treatment: Pt is depressed and anxious, he wishes to stay clean and sober, he needs crisis interruption with medication adjustment and monitoring in a safe and therapeutic environment as well as resources to pursue sobriety once discharged to prevent decompensation and readmission.
[2019-02-17 08:00] VITALS: BP 110/70
[2019-02-17] MEDS: buprenorphine/naloxone 8MG-2MG SUBlingual film SL SCH ×2 (08:00→20:15)
[2019-02-17] MEDS: buPROPion 75mg tablet PO SCH ×2 (08:09→12:56)
[2019-02-17] MEDS: LORazepam 1 MG tablet PO PRN (09:45)
--- NOTE | 2019-02-17 16:49 | NUR ---
Nursing Progress Note: Legal hold:5250 Client on involuntary status for DTS Report received from SHRUTI Wolfe with use of SBAR Why are they here: Pt is a 29 yo male brought to [facility] from [facility] ER after being put on a 5150 hold for danger to self. Pt SA was interrupted by his mother when he was on a bridge and thinking about jumping. Pt is feeling effects of heroine withdrawal, depressed, and dealing with the traumatic experience of having his friend in his arms due to an OD. Pt motivated to stop using heroin and agreeable to an antidepressant. Assessment What has happened this shift: Pt spent all day in bed due to symptoms of vomiting and diarrhea x2 days. Temp WNL's, HR 83. Continues to appear pale with red blotches on his face. Pt slept all day. He was not up for meals states, "I don't want to eat when I am finally not throwing up." S/I, H/I: denies A/VH: denies Sleep: Slept on and off all day ADL's: Independent Group attendance: No Were Meds taken: Yes Any med S/E: None noted or reported Mental Status Exam Appearance: Clean green scrubs Eye contact: Good Behavior: cooperative Speech: Clear, audible, minimal Mood: Anxious, depressed Affect: Anxious Thought process: linear Thought Content: He would like to go down on the Suboxone so he can go into a drug rehab Cognition: A/O X 4 Insight: Fair Judgment: Fair Interventions PRN's used: None Therapeutic interventions: 1:1 assessment, therapeutic conversation, encouragement to take medications as prescribed, medication administration/monitoring/education, mental health legal hold education, Q 15 min safety checks. Restraints/seclusion/emergency medication: None Justification of Continued Inpatient Treatment: Pt is depressed and anxious, he wishes to stay clean and sober, he needs crisis interruption with medication adjustment and monitoring in a safe and therapeutic environment as well as resources to pursue sobriety once discharged to prevent decompensation and readmission.
[2019-02-17 19:44] VITALS: BP 113/67
[2019-02-17] MEDS: traZODone 50mg tablet PO PRN (20:15)
--- NOTE | 2019-02-17 21:34 | NUR ---
Nursing Progress Note: Legal hold:5250 Client on involuntary status for DTS Report received from SHRUTI Lafleur with use of SBAR Why are they here: Pt is a 29 yo male brought to [facility] from [facility] ER after being put on a 5150 hold for danger to self. Pt SA was interrupted by his mother when he was on a bridge and thinking about jumping. Pt is feeling effects of heroin withdrawal, depressed, and dealing with the traumatic experience of having his friend in his arms due to an OD. Pt motivated to stop using heroin and agreeable to an antidepressant. Assessment What has happened this shift: Pt was in group room at change of shift. 1:1 assessment completed in rec room. Pt reports that he stayed in bed all day because he was feeling sick. Denies s/i, denies a/vh. Pt requested ativan for anxiety. Pt was given prn atarax for anxiety first. Pt denies n/v when taking evening meds in the rec room, and reported he at 100% of his dinner meal and was able to keep it down. Pt walked up to a 2nd patient immediately after taking meds, made eye contact and walked to his room where he began throwing up. Asked pt if was ok and he said he was. Shortly after throwing up, pt went into group room and sat with 2nd patient prior to going to bed. S/I, H/I: denies A/VH: denies Sleep: Slept on and off all day ADL's: Independent Group attendance: No Were Meds taken: Yes Any med S/E: None noted or reported Mental Status Exam Appearance: adequately groomed in street clothes and ball cap. Eye contact: Good Behavior: cooperative Speech: Clear, audible, minimal Mood: Anxious, depressed Affect: Anxious Thought process: linear Thought Content: talking about his "stomach bug" Cognition: A/O X 4 Insight: Fair Judgment: Fair Interventions PRN's used: atarax Therapeutic interventions: 1:1 assessment, therapeutic conversation, encouragement to take medications as prescribed, medication administration/monitoring/education, mental health legal hold education, Q 15 min safety checks. Restraints/seclusion/emergency medication: None Justification of Continued Inpatient Treatment: Pt is depressed and anxious, he wishes to stay clean and sober, he needs crisis interruption with medication adjustment and monitoring in a safe and therapeutic environment as well as resources to pursue sobriety once discharged to prevent decompensation and readmission.
[2019-02-18] MEDS: buprenorphine/naloxone 8MG-2MG SUBlingual film SL SCH (07:30)
[2019-02-18] MEDS: buPROPion 75mg tablet PO SCH ×2 (07:30→13:25)
[2019-02-18 07:53] VITALS: BP 110/60
--- NOTE | 2019-02-18 11:35 | NUR ---
DISCHARGE PLANNING: SW informed pt of tx programs that will support medication assisted tx. SW provided pt w/ a list of providers to choose from. Chantelle Rowland, Glass Decorator CASHIER SEL[employer] SERVICE G[employer]OLINE [id number] Supervised by Ray Yen, [id number]
[2019-02-18] MEDS ORDERED: BUPR1FIL3 SL (13:37)
[2019-02-18] MEDS ORDERED: HYDR-3686 PO (13:37)
[2019-02-18] MEDS ORDERED: BUPR75TA12 PO (13:37)
[2019-02-18] MEDS ORDERED: TRAZ-251 PO (13:37)
[2019-02-18] MEDS ORDERED: NICO-668 MM (13:37)
--- NOTE | 2019-02-18 16:09 | NUR ---
Nursing Discharge Note: Pt discharged from [facility] at 1545 and escorted by this RN to the front door. Pt DC'd with understanding of all plans and appiontments and will be staying with his mother. Pt has been provided nicotine replacement. He left ambulatory, and in no acute physical or emotional distress, and has been improving since admission. Pt mildly anxious and eager to leave and denies SI at this time, and his valuables were inventoried and returned to him.
== END 2019-02-18 15:45 | disposition home or self-care (01) | DRG 751 ==
LOC: ADULT MH 14:58
PROVIDERS: ADMIT Psychiatry & Neurology Psychiatry; ATTEND Psychiatry & Neurology Psychiatry
DX: F33.9 Major depressive disorder, recurrent, unspecified (principal); R45.851 Suicidal ideations; F11.29 Opioid dependence with unspecified opioid-induced disorder; F15.90 Other stimulant use, unspecified, uncomplicated; R19.7 Diarrhea, unspecified; R11.2 Nausea with vomiting, unspecified; F41.9 Anxiety disorder, unspecified; Z59.0 Homelessness; Z79.899 Other long term (current) drug therapy
CPT/HCPCS: 36415; 80061; 83036; 87081; J2765; Z7610